=== PATIENT | male | born 1940 | race Caucasian/White ===

== ENCOUNTER 2023-10-22 06:44 | Emergency (ER) | payer MEDICARE ==
[~2023-10-22] VITALS: Ht 177.8 cm; Wt 83.6 kg
[2023-10-22 07:42] LABS: BILIRUBIN,URINE NEGATIVE (Neg); CLARITY,URINE CLEAR (Clear); COLOR,URINE YELLOW (Yellow); GLUCOSE, URINE NEGATIVE (Neg); KETONES,URINE NEGATIVE (Neg); LEUKOCYTE ESTERASE ,URINE NEGATIVE (Neg); NITRITES, URINE NEGATIVE (Neg); OCCULT BLOOD,URINE NEGATIVE (Neg); PH,URINE 5.5 (4.8-8.0); PROTEIN,URINE NEGATIVE (Neg); UROBILINOGEN,URINE 0.2 E.U/dL (0.2-1.0)
[2023-10-22 07:46] LABS: UA COLLECTION TYPE CLN CATCH MIDSTREAM
[2023-10-22 08:25] LABS: BASOPHILS % (AUTO) 0.6 % (0-1); EOSINOPHILS # (AUTO) 0.2 X10'3 (0-0.9); EOSINOPHILS % (AUTO) 2.2 % (0-6); HEMATOCRIT 43.4 % (42.0-52.0); HEMOGLOBIN 14.3 g/dl (14.0-17.9); LYMPHOCYTES % (AUTO) 26.2 % (21-51); MEAN CORPUSCULAR HEMOGLOBIN 30.8 PG (27.0-31.0); MEAN CORPUSCULAR HGB CONC 32.9 g/dL (33.0-36.5); MEAN CORPUSCULAR VOLUME 93.9 FL (78-98); MEAN PLATELET VOLUME 9.1 FL (7.4-10.4); MONOCYTES # (AUTO) 0.8 X10'3 (0-0.9); MONOCYTES % (AUTO) 9.9 % (2-12); NEUTROPHILS # (AUTO) 4.7 X10'3 (1.8-7.7); NEUTROPHILS % (AUTO) 61.1 % (42-75); PLATELET COUNT 225 X10'3 (140-440); RED BLOOD COUNT 4.62 X10'6 (4.70-6.10); RED CELL DISTRIBUTION WIDTH 14.1 % (11.5-14.5); WHITE BLOOD COUNT 7.7 X10'3 (4.5-11.0)
[2023-10-22 08:37] LABS: ALBUMIN 3.8 G/DL (3.4-5.0); ANION GAP 11 (8-16); BLOOD UREA NITROGEN 32 MG/DL (7-18); BUN/CREATININE RATIO 28.1 (10.0-20.0); CHLORIDE 108 MMOL/L (99-107); CREATININE 1.14 MG/DL (0.60-1.10); GLUCOSE 101 MG/DL (70-104); POTASSIUM 4.5 MMOL/L (3.5-5.1); SODIUM 140 MMOL/L (135-145); TOTAL CARBON DIOXIDE 21.1 MMOL/L (24-32); eCRCL 51 ML/MIN; eGFR 61 ML/MIN
[2023-10-22 08:42] VITALS: BP 119/71; PULSE 72; RESP 18; TEMP 97; O2SAT 96
== END 2023-10-22 09:03 | disposition home or self-care (01) ==
LOC: ER 06:44
DX: S06.0X0A Concussion without loss of consciousness, initial encounter (principal); R68.84 Jaw pain; W22.8XXA Striking against or struck by other objects, initial encounter; Y93.89 Activity, other specified; Y92.89 Other specified places as the place of occurrence of the external cause; Y99.8 Other external cause status
CPT/HCPCS: 36415; 70450; 70486; 72125; 80048; 81003; 84484; 85025; 99284

== ENCOUNTER 2024-03-18 18:55 | Inpatient (IN) | payer MEDICARE ==
[~2024-03-18] VITALS: Ht 177.8 cm; Wt 72.3 kg
[2024-03-18 19:55] LABS: BASOPHILS # (AUTO) 0.1 X10'3 (0-0.2); BASOPHILS % (AUTO) 0.6 % (0-1); EOSINOPHILS % (AUTO) 0 % (0-6); HEMOGLOBIN 13.5 g/dl (14.0-17.9); LYMPHOCYTES # (AUTO) 1.8 X10'3 (1.1-4.8); LYMPHOCYTES % (AUTO) 15.6 % (21-51); MEAN CORPUSCULAR HEMOGLOBIN 31.9 PG (27.0-31.0); MEAN CORPUSCULAR HGB CONC 33.8 g/dL (33.0-36.5); MEAN CORPUSCULAR VOLUME 94.4 FL (78-98); MEAN PLATELET VOLUME 8.9 FL (7.4-10.4); NEUTROPHILS # (AUTO) 8.6 X10'3 (1.8-7.7); NEUTROPHILS % (AUTO) 74.8 % (42-75); PLATELET COUNT 207 X10'3 (140-440); RED BLOOD COUNT 4.24 X10'6 (4.70-6.10); RED CELL DISTRIBUTION WIDTH 13.9 % (11.5-14.5); WHITE BLOOD COUNT 11.5 X10'3 (4.5-11.0)
[2024-03-18 20:04] LABS: ALBUMIN 3.9 G/DL (3.4-5.0); ANION GAP 12 (8-16); BLOOD UREA NITROGEN 39 MG/DL (7-18); BUN/CREATININE RATIO 21.2 (10.0-20.0); CALCIUM 9.3 MG/DL (8.5-10.1); CHLORIDE 106 MMOL/L (99-107); CREATININE 1.84 MG/DL (0.60-1.10); GLUCOSE 102 MG/DL (70-104); POTASSIUM 4.4 MMOL/L (3.5-5.1); SODIUM 139 MMOL/L (135-145); TOTAL CARBON DIOXIDE 20.9 MMOL/L (24-32); eCRCL 31 ML/MIN; eGFR 35 ML/MIN
[2024-03-18 20:21] LABS: MAGNESIUM 1.7 MG/DL (1.5-2.4)
[2024-03-18] MEDS: normal saline 1000ML IV soln IVB ONE (21:01)
[2024-03-18 21:31] LABS: BILIRUBIN,URINE NEGATIVE (Neg); CLARITY,URINE CLEAR (Clear); COLOR,URINE YELLOW (Yellow); GLUCOSE, URINE NEGATIVE (Neg); KETONES,URINE 15 mg/dl (Neg); LEUKOCYTE ESTERASE ,URINE NEGATIVE (Neg); NITRITES, URINE NEGATIVE (Neg); OCCULT BLOOD,URINE TRACE-INTACT (Neg); PH,URINE 5.5 (4.8-8.0); PROTEIN,URINE NEGATIVE (Neg); UROBILINOGEN,URINE 0.2 E.U/dL (0.2-1.0)
[2024-03-18 21:32] LABS: UA COLLECTION TYPE CLN CATCH MIDSTREAM
[2024-03-18 21:37] LABS: RBC,URINE 0-2 /HPF (0-2); WBC,URINE 0-4 /HPF (0-4)
[2024-03-18 21:38] LABS: BACTERIA,URINE FEW /HPF (Neg); FINE GRANULAR CAST 0-3 /LPF (NEGATIVE); MUCUS STRANDS FEW /LPF (Neg); SQUAMOUS EPITHELIAL CELL,UR FEW /LPF (FEW)
[2024-03-18] MEDS ORDERED: magnesium Cl slow-release 64mg tablet PO PRN (21:55)
[2024-03-18] MEDS ORDERED: mag hydrox/Alum hydrox/simeth 30ml oral suspension PO PRN (21:55)
[2024-03-18] MEDS ORDERED: magnesium sulf-water 4G/100mL 100 ML IV PRN (21:55)
[2024-03-18] MEDS ORDERED: potassium Cl 20 mEq SR tablet PO PRN ×2 (21:55)
[2024-03-18] MEDS ORDERED: magnesium hydroxide 30ml (MOM) UD suspension PO PRN (21:55)
[2024-03-18] MEDS ORDERED: magnesium sulf-water 2g/50mL 50 ML IV PRN (21:55)
[2024-03-18] MEDS ORDERED: ondansetron/PF 4mg/2ml inj IV PRN (21:55)
[2024-03-18] MEDS ORDERED: potassium Cl 40MEQ/1/2NS 520ml 520 ML IV PRN (21:55)
[2024-03-18 22:45] LABS: HEMOGLOBIN A1C 5.8 % (4.5-6.2)
[2024-03-18 23:05] LABS: FERRITIN 577 NG/ML (26-388); FREE T4 (FREE THYROXINE) 1.06 NG/DL (0.73-1.40); THYROID STIMULATING HORMONE 2.01 ulU/ml (0.34-4.50)
[2024-03-19] VITALS (8 sets, daily range): BP systolic 122–148; BP diastolic 46–80; PULSE 50–86; RESP 14–18; TEMP 97.4–98.4; O2SAT 93–97
[2024-03-19 07:45] LABS: CHOL/HDL RATIO 3.4 (0.00-4.99); CHOLESTEROL 118 MG/DL (0-200); HDL CHOLESTEROL 35 MG/DL (35-60); LDL CHOLESTEROL 74 MG/DL (50-100); MAGNESIUM 2.1 MG/DL (1.5-2.4); POTASSIUM 4.2 MMOL/L (3.5-5.1); TRIGLYCERIDES 72 MG/DL (20-135)
[2024-03-19] MEDS: enoxaparin 40mg/0.4ml syringe SUBCUT SCH (08:44)
[2024-03-19] MEDS: docusate sod 100mg capsule PO SCH (08:44)
[2024-03-19] MEDS: aspirin 81mg, enteric-coated 1 TAB TABLET.DR PO SCH (08:45)
[2024-03-19] MEDS: K and/or MAG REPLACEMENT MC SCH (08:45)
[2024-03-19] MEDS: clopidogrel 75mg tablet PO SCH (08:45)
[2024-03-19] MEDS: atorvastatin 20mg tablet PO SCH (08:45)
[2024-03-19] MEDS ORDERED: ALPR0.5T8 PO (12:23)
[2024-03-19] MEDS ORDERED: ALLO300T8 PO (12:23)
[2024-03-19] MEDS ORDERED: DICL50TA14 PO (12:23)
[2024-03-19] MEDS: ziprasidone IM 20mg inj **IM only IM PRN (18:49)
[2024-03-19] MEDS: OLANZapine 5mg rapidly disint. tablet PO PRN (20:11)
[2024-03-19] MEDS: normal saline 1000ml 1,000 ML IV SCH (23:13)
[2024-03-19] MEDS: OLANZapine 5mg rapidly disint. tablet PO ONE (23:49)
[2024-03-19] MEDS: diphenhydrAMINE 50 mg/ml inj IV ONE (23:50)
[2024-03-20] MEDS: OLANZapine **IM** 10 mg inj. IM ONE (00:48)
[2024-03-20 06:00] VITALS: BP 126/86; PULSE 54; RESP 13; O2SAT 94
[2024-03-20 07:13] LABS: BASOPHILS % (AUTO) 0.2 % (0-1); EOSINOPHILS # (AUTO) 0.1 X10'3 (0-0.9); EOSINOPHILS % (AUTO) 1.3 % (0-6); HEMATOCRIT 40.1 % (42.0-52.0); HEMOGLOBIN 13.5 g/dl (14.0-17.9); LYMPHOCYTES # (AUTO) 1.9 X10'3 (1.1-4.8); LYMPHOCYTES % (AUTO) 22.5 % (21-51); MEAN CORPUSCULAR HGB CONC 33.8 g/dL (33.0-36.5); MEAN CORPUSCULAR VOLUME 94.6 FL (78-98); MEAN PLATELET VOLUME 8.9 FL (7.4-10.4); MONOCYTES # (AUTO) 0.8 X10'3 (0-0.9); MONOCYTES % (AUTO) 9.8 % (2-12); NEUTROPHILS # (AUTO) 5.5 X10'3 (1.8-7.7); NEUTROPHILS % (AUTO) 66.2 % (42-75); PLATELET COUNT 190 X10'3 (140-440); RED BLOOD COUNT 4.23 X10'6 (4.70-6.10); RED CELL DISTRIBUTION WIDTH 14.1 % (11.5-14.5); WHITE BLOOD COUNT 8.3 X10'3 (4.5-11.0)
[2024-03-20 07:36] LABS: ALANINE AMINOTRANSFERASE 29 U/L (12-78); ALBUMIN 3.5 G/DL (3.4-5.0); ALKALINE PHOSPHATASE 67 IU/L (46-116); ANION GAP 10 (8-16); ASPARTATE AMINO TRANSFERASE 43 U/L (10-37); BLOOD UREA NITROGEN 32 MG/DL (7-18); BUN/CREATININE RATIO 23.7 (10.0-20.0); CALCIUM 8.9 MG/DL (8.5-10.1); CHLORIDE 110 MMOL/L (99-107); CREATININE 1.35 MG/DL (0.60-1.10); GLUCOSE 97 MG/DL (70-104); MAGNESIUM 1.8 MG/DL (1.5-2.4); POTASSIUM 3.8 MMOL/L (3.5-5.1); SODIUM 142 MMOL/L (135-145); TOTAL CARBON DIOXIDE 22.5 MMOL/L (24-32); eCRCL 42 ML/MIN; eGFR 50 ML/MIN
[2024-03-20] MEDS: diazepam inj 5 MG/ML inj. IV PRN (12:16)
[2024-03-20] MEDS ORDERED: ondansetron 4mg rapidly disintigrating tab PO PRN (15:39)
[2024-03-20 20:00] VITALS: RESP 14; O2SAT 93
[2024-03-20 22:00] VITALS: BP 116/57; PULSE 61; PULSE 82; RESP 14; RESP 15; TEMP 98.3; O2SAT 93
[2024-03-21 00:25] VITALS: O2SAT 93
[2024-03-21 06:00] VITALS: BP 132/65; PULSE 58; RESP 16; TEMP 97.8; O2SAT 91
[2024-03-21 07:49] LABS: BASOPHILS % (AUTO) 0.3 % (0-1); EOSINOPHILS # (AUTO) 0.1 X10'3 (0-0.9); HEMATOCRIT 40.2 % (42.0-52.0); HEMOGLOBIN 13.3 g/dl (14.0-17.9); LYMPHOCYTES # (AUTO) 1.5 X10'3 (1.1-4.8); MEAN CORPUSCULAR HEMOGLOBIN 31.3 PG (27.0-31.0); MEAN CORPUSCULAR HGB CONC 33.1 g/dL (33.0-36.5); MEAN CORPUSCULAR VOLUME 94.6 FL (78-98); MEAN PLATELET VOLUME 9.2 FL (7.4-10.4); MONOCYTES # (AUTO) 0.8 X10'3 (0-0.9); MONOCYTES % (AUTO) 9.6 % (2-12); NEUTROPHILS # (AUTO) 6.1 X10'3 (1.8-7.7); NEUTROPHILS % (AUTO) 71.1 % (42-75); PLATELET COUNT 192 X10'3 (140-440); RED BLOOD COUNT 4.25 X10'6 (4.70-6.10); RED CELL DISTRIBUTION WIDTH 13.8 % (11.5-14.5); WHITE BLOOD COUNT 8.6 X10'3 (4.5-11.0)
[2024-03-21 08:21] LABS: ALANINE AMINOTRANSFERASE 31 U/L (12-78); ALBUMIN 3.3 G/DL (3.4-5.0); ALKALINE PHOSPHATASE 64 IU/L (46-116); ANION GAP 8 (8-16); ASPARTATE AMINO TRANSFERASE 46 U/L (10-37); BILIRUBIN,TOTAL 1.3 MG/DL (0.1-1.0); BLOOD UREA NITROGEN 24 MG/DL (7-18); BUN/CREATININE RATIO 21.4 (10.0-20.0); CALCIUM 8.7 MG/DL (8.5-10.1); CHLORIDE 109 MMOL/L (99-107); CREATININE 1.12 MG/DL (0.60-1.10); GLUCOSE 97 MG/DL (70-104); MAGNESIUM 1.6 MG/DL (1.5-2.4); POTASSIUM 3.9 MMOL/L (3.5-5.1); SODIUM 141 MMOL/L (135-145); TOTAL CARBON DIOXIDE 23.6 MMOL/L (24-32); TOTAL PROTEIN 6.7 G/DL (6.4-8.2); eCRCL 50 ML/MIN; eGFR 62 ML/MIN
[2024-03-21 10:00] VITALS: BP 136/56; PULSE 52; RESP 16; TEMP 97.9; O2SAT 95
[2024-03-21 18:00] VITALS: BP 133/80; PULSE 76; RESP 18; TEMP 98.9; O2SAT 95
[2024-03-21 22:00] VITALS: BP 128/59; PULSE 68; RESP 20; TEMP 98.3; O2SAT 97
[2024-03-22 06:00] VITALS: BP 142/62; PULSE 62; RESP 16; TEMP 98.6; O2SAT 95
[2024-03-22 06:54] LABS: BASOPHILS % (AUTO) 0.4 % (0-1); EOSINOPHILS # (AUTO) 0.2 X10'3 (0-0.9); HEMATOCRIT 39.7 % (42.0-52.0); LYMPHOCYTES % (AUTO) 20.1 % (21-51); MEAN CORPUSCULAR HEMOGLOBIN 30.9 PG (27.0-31.0); MEAN CORPUSCULAR HGB CONC 32.7 g/dL (33.0-36.5); MEAN CORPUSCULAR VOLUME 94.3 FL (78-98); MEAN PLATELET VOLUME 8.9 FL (7.4-10.4); MONOCYTES # (AUTO) 0.9 X10'3 (0-0.9); MONOCYTES % (AUTO) 9.4 % (2-12); NEUTROPHILS # (AUTO) 6.8 X10'3 (1.8-7.7); NEUTROPHILS % (AUTO) 68.1 % (42-75); PLATELET COUNT 190 X10'3 (140-440); RED BLOOD COUNT 4.21 X10'6 (4.70-6.10); RED CELL DISTRIBUTION WIDTH 13.8 % (11.5-14.5); WHITE BLOOD COUNT 9.9 X10'3 (4.5-11.0)
[2024-03-22 07:14] LABS: ALANINE AMINOTRANSFERASE 18 U/L (12-78); ALBUMIN/GLOBULIN RATIO 0.9 (1.1-1.5); ALKALINE PHOSPHATASE 63 IU/L (46-116); ANION GAP 8 (8-16); ASPARTATE AMINO TRANSFERASE 34 U/L (10-37); BILIRUBIN,TOTAL 1.3 MG/DL (0.1-1.0); BLOOD UREA NITROGEN 22 MG/DL (7-18); CALCIUM 8.7 MG/DL (8.5-10.1); CHLORIDE 110 MMOL/L (99-107); GLUCOSE 99 MG/DL (70-104); MAGNESIUM 1.4 MG/DL (1.5-2.4); POTASSIUM 3.9 MMOL/L (3.5-5.1); SODIUM 141 MMOL/L (135-145); TOTAL PROTEIN 6.4 G/DL (6.4-8.2); eCRCL 51 ML/MIN; eGFR 64 ML/MIN
[2024-03-22] MEDS: allopurinol 300 MG tablet PO SCH (08:29)
[2024-03-22 10:00] VITALS: BP 109/64; PULSE 82; RESP 17; TEMP 98.2; O2SAT 94
[2024-03-22] MEDS ORDERED: allopurinol 100mg tablet PO SCH (15:18)
[2024-03-22] MEDS ORDERED: potassium Cl 40MEQ/1/2NS 520ml 520 ML IV PRN (16:30)
[2024-03-22] MEDS ORDERED: magnesium sulf-water 2g/50mL 50 ML IV PRN (16:30)
[2024-03-22] MEDS ORDERED: potassium Cl 20 mEq SR tablet PO PRN ×2 (16:30)
[2024-03-22] MEDS ORDERED: magnesium sulf-water 4G/100mL 100 ML IV PRN (16:30)
[2024-03-22 18:00] VITALS: BP_SYST 130; BP_SYST 152; BP_DIAS 77; BP_DIAS 91; PULSE 67; PULSE 79; RESP 16; RESP 20; TEMP 98.2; TEMP 98.6; O2SAT 93; O2SAT 96
[2024-03-22] MEDS: magnesium Cl slow-release 64mg tablet PO PRN (20:06)
[2024-03-22] MEDS: ALPRAZolam 0.5mg tablet PO PRN (20:06)
[2024-03-22 22:00] VITALS: BP 130/77; PULSE 67; RESP 20; TEMP 98.2; O2SAT 93
[2024-03-23 06:00] VITALS: BP 148/65; PULSE 64; RESP 16; TEMP 98.2; O2SAT 90
[2024-03-23 06:47] LABS: BASOPHILS % (AUTO) 0.4 % (0-1); EOSINOPHILS # (AUTO) 0.1 X10'3 (0-0.9); EOSINOPHILS % (AUTO) 1.2 % (0-6); HEMOGLOBIN 13.1 g/dl (14.0-17.9); LYMPHOCYTES # (AUTO) 1.9 X10'3 (1.1-4.8); LYMPHOCYTES % (AUTO) 20.4 % (21-51); MEAN CORPUSCULAR HEMOGLOBIN 31.7 PG (27.0-31.0); MEAN CORPUSCULAR HGB CONC 33.5 g/dL (33.0-36.5); MEAN CORPUSCULAR VOLUME 94.5 FL (78-98); MEAN PLATELET VOLUME 9.1 FL (7.4-10.4); MONOCYTES # (AUTO) 0.9 X10'3 (0-0.9); MONOCYTES % (AUTO) 10.2 % (2-12); NEUTROPHILS # (AUTO) 6.3 X10'3 (1.8-7.7); NEUTROPHILS % (AUTO) 67.8 % (42-75); PLATELET COUNT 198 X10'3 (140-440); RED BLOOD COUNT 4.13 X10'6 (4.70-6.10); RED CELL DISTRIBUTION WIDTH 13.7 % (11.5-14.5); WHITE BLOOD COUNT 9.2 X10'3 (4.5-11.0)
[2024-03-23 06:57] LABS: ALANINE AMINOTRANSFERASE 21 U/L (12-78); ALBUMIN/GLOBULIN RATIO 0.9 (1.1-1.5); ALKALINE PHOSPHATASE 60 IU/L (46-116); ANION GAP 8 (8-16); ASPARTATE AMINO TRANSFERASE 23 U/L (10-37); BILIRUBIN,TOTAL 1.3 MG/DL (0.1-1.0); BLOOD UREA NITROGEN 21 MG/DL (7-18); BUN/CREATININE RATIO 18.4 (10.0-20.0); CALCIUM 8.6 MG/DL (8.5-10.1); CHLORIDE 109 MMOL/L (99-107); CREATININE 1.14 MG/DL (0.60-1.10); GLUCOSE 105 MG/DL (70-104); POTASSIUM 3.9 MMOL/L (3.5-5.1); SODIUM 140 MMOL/L (135-145); TOTAL CARBON DIOXIDE 23.4 MMOL/L (24-32); TOTAL PROTEIN 6.4 G/DL (6.4-8.2); eCRCL 49 ML/MIN; eGFR 61 ML/MIN
[2024-03-23] MEDS: allopurinol 300 MG tablet PO SCH (08:50)
[2024-03-23] MEDS: lactose-reduced food (Ensure Enlive) - 237ml bottle PO SCH (12:30)
[2024-03-23 18:00] VITALS: BP_SYST 153; BP_SYST 155; BP_DIAS 78; PULSE 65; PULSE 81; RESP 16; TEMP 97.6; O2SAT 95; O2SAT 97
[2024-03-23 22:00] VITALS: BP_SYST 140; BP_SYST 149; BP_DIAS 60; BP_DIAS 71; PULSE 67; PULSE 81; RESP 16; RESP 22; TEMP 98.3; TEMP 99.2; O2SAT 94; O2SAT 96
[2024-03-24 05:00] VITALS: BP 189/71; PULSE 63; RESP 16; TEMP 98.3; O2SAT 98
[2024-03-24 05:35] LABS: BASOPHILS % (AUTO) 0.4 % (0-1); EOSINOPHILS # (AUTO) 0.3 X10'3 (0-0.9); EOSINOPHILS % (AUTO) 2.8 % (0-6); HEMATOCRIT 37.7 % (42.0-52.0); HEMOGLOBIN 12.5 g/dl (14.0-17.9); LYMPHOCYTES # (AUTO) 1.6 X10'3 (1.1-4.8); LYMPHOCYTES % (AUTO) 17.3 % (21-51); MEAN CORPUSCULAR HEMOGLOBIN 31.3 PG (27.0-31.0); MEAN CORPUSCULAR HGB CONC 33.3 g/dL (33.0-36.5); MONOCYTES # (AUTO) 0.9 X10'3 (0-0.9); MONOCYTES % (AUTO) 9.7 % (2-12); NEUTROPHILS # (AUTO) 6.4 X10'3 (1.8-7.7); NEUTROPHILS % (AUTO) 69.8 % (42-75); PLATELET COUNT 189 X10'3 (140-440); RED BLOOD COUNT 4.01 X10'6 (4.70-6.10); RED CELL DISTRIBUTION WIDTH 13.9 % (11.5-14.5); WHITE BLOOD COUNT 9.2 X10'3 (4.5-11.0)
[2024-03-24 05:57] LABS: ALANINE AMINOTRANSFERASE 20 U/L (12-78); ALBUMIN 2.8 G/DL (3.4-5.0); ALBUMIN/GLOBULIN RATIO 0.8 (1.1-1.5); ALKALINE PHOSPHATASE 61 IU/L (46-116); ANION GAP 9 (8-16); ASPARTATE AMINO TRANSFERASE 24 U/L (10-37); BLOOD UREA NITROGEN 16 MG/DL (7-18); BUN/CREATININE RATIO 15.4 (10.0-20.0); CALCIUM 8.5 MG/DL (8.5-10.1); CHLORIDE 108 MMOL/L (99-107); CREATININE 1.04 MG/DL (0.60-1.10); GLUCOSE 109 MG/DL (70-104); POTASSIUM 3.8 MMOL/L (3.5-5.1); SODIUM 140 MMOL/L (135-145); TOTAL CARBON DIOXIDE 22.8 MMOL/L (24-32); TOTAL PROTEIN 6.4 G/DL (6.4-8.2); eCRCL 54 ML/MIN; eGFR 68 ML/MIN
[2024-03-24 08:00] VITALS: RESP 16; O2SAT 93
[2024-03-24 20:00] VITALS: RESP 16; O2SAT 95
[2024-03-25 06:00] VITALS: BP 144/69; PULSE 60; RESP 18; TEMP 97.7; O2SAT 94
[2024-03-25] MEDS: acetaminophen 325mg tablet PO PRN (07:40)
[2024-03-25 08:00] VITALS: RESP 16; O2SAT 95
[2024-03-25 10:00] VITALS: BP 121/61; PULSE 84; RESP 13; TEMP 97.4; O2SAT 92
[2024-03-25 18:00] VITALS: BP 132/75; PULSE 87; RESP 18; TEMP 97.6; O2SAT 96
[2024-03-25 20:00] VITALS: RESP 16; O2SAT 95
[2024-03-25 22:00] VITALS: BP 165/85; PULSE 89; RESP 20; TEMP 98.8; O2SAT 97
[2024-03-26 08:00] VITALS: RESP 16
[2024-03-26] MEDS ORDERED: ATOR20TA66 PO (09:26)
[2024-03-26] MEDS ORDERED: ASPI-1071 PO (09:28)
[2024-03-26 10:22] VITALS: BP 111/60; PULSE 82; RESP 18; TEMP 98.3; O2SAT 96
== END 2024-03-26 15:45 | disposition home or self-care (01) | DRG 640 ==
LOC: ER 18:55 → ED HOLD 22:04 → ORTHO 4S 22:04 → UNDOADMIN 22:04 → ORTHO 4S 03-19 05:46
PROVIDERS: ADMIT Surgery; ATTEND Family Medicine
DX: E86.0 Dehydration (principal); G93.41 Metabolic encephalopathy; F01.54 Vascular dementia, unspecified severity, with anxiety; N17.9 Acute kidney failure, unspecified; F05 Delirium due to known physiological condition; T50.996A Underdosing of other drugs, medicaments and biological substances, initial encounter; M10.9 Gout, unspecified; D72.829 Elevated white blood cell count, unspecified; Z86.73 Personal history of transient ischemic attack (TIA), and cerebral infarction without residual deficits; Z91.128 Patient's intentional underdosing of medication regimen for other reason; Y92.89 Other specified places as the place of occurrence of the external cause; Z79.82 Long term (current) use of aspirin
CPT/HCPCS: 36415; 70450; 70544; 70547; 70551; 71045; 80048; 80053; 80061; 81001; 82607; 82728; 83036; 83540; 83735; 84132; 84439; 84443; 84484; 85025; 87081; 92508; 92616; 93005; 93306; 93880; 97116; 97161; 97530; 99285; A6590; G0378; J1200; J1650; J3360; J3486; J3490; J7030; J7040; J7120